=== PATIENT | male | born 1945 | race Hispanic/Latino ===

== ENCOUNTER 2018-11-21 15:34 | Inpatient (IN) | payer MEDICARE, OTHER ==
[~2018-11-21] VITALS: Ht 170.2 cm; Wt 69.9 kg
[~2018-11-21 15:34] MED LIST: FERS325 PO; TIOT4MIS3 IH
[2018-11-21] MEDS ORDERED: ONDANSETRON HCL 4 MG/2 ML VIAL ONE (16:39)
[2018-11-21] MEDS ORDERED: HYDROMORPHONE 1 MG/1 ML AMP ONE (16:40)
[2018-11-21 16:53] LABS: BASOPHILS % (AUTO) 0.4 % (0.0-5.0); EOSINOPHILS % (AUTO) 0.4 % (0.0-8.0); HEMATOCRIT 38.5 % (42-54); LYMPHOCYTES % (AUTO) 12.7 % (21.0-51.0); MEAN CORPUSCULAR HEMOGLOBIN 30.9 pg (27.0-33.0); MEAN CORPUSCULAR VOLUME 93.9 fL (79-99); NEUTROPHILS % (AUTO) 82.5 % (40.0-77.0); PLATELET COUNT (AUTO) 182 K/uL (130-400); RED CELL DISTRIBUTION WIDTH 14.3 % (11.0-15.5); WHITE BLOOD COUNT (AUTO) 14.5 K/uL (4.8-10.8)
[2018-11-21] MEDS ORDERED: IPRATROPIUM/ALBUTEROL SULFATE 3 ML SOLUTION IH ONE (16:57)
[2018-11-21] MEDS ORDERED: ACETAMINOPHEN 325 MG TAB PO PRN (17:00)
[2018-11-21] MEDS ORDERED: ONDANSETRON HCL 4 MG/2 ML VIAL IV PRN (17:00)
[2018-11-21 17:05] LABS: INR 1.02 (0.85-1.15); PARTIAL THROMBOPLASTIN TIME 29.5 SEC (26.3-35.5); PROTHROMBIN TIME 10.7 SEC (9.6-11.6)
[2018-11-21 17:12] LABS: CREATININE 0.8 mg/dL (0.5-1.5); POTASSIUM 3.5 mmol/L (3.5-5.1)
[2018-11-21 17:17] LABS: ALBUMIN 3.7 g/dL (3.5-5.0); BILIRUBIN,TOTAL 0.4 mg/dL (0.2-1.0); TOTAL PROTEIN, SERUM 7.1 g/dL (6.0-8.3)
[2018-11-21 17:57] VITALS: BP 150/106
--- NOTE | 2018-11-21 18:00 | NUR ---
dr. betancourt made aware of consult stated to keep pt npo after midnight
--- NOTE | 2018-11-21 18:00 | NUR ---
family made aware to bring pt's medications from home
--- NOTE | 2018-11-21 18:27 | NUR ---
LOPPER paged, no answer
--- NOTE | 2018-11-21 18:32 | NUR ---
maritza alonso was paged
[2018-11-21] MEDS ORDERED: CLONIDINE HCL 0.1 MG TABLET ONE (18:37)
[2018-11-21] MEDS ORDERED: CLONIDINE HCL 0.1 MG TABLET PO PRN (18:45)
[2018-11-21] MEDS: IPRATROPIUM/ALBUTEROL SULFATE 3 ML SOLUTION IH SCH ×2 (19:35→22:39)
[2018-11-21] MEDS: SODIUM CHLORIDE 0.9% 1000ML 1,000 ML IV SCH (19:44)
[2018-11-21] MEDS: FAMOTIDINE 20MG TAB 20 MG TAB PO SCH (19:44)
[2018-11-21 20:00] VITALS: BP 115/62
[2018-11-21 23:59] VITALS: BP 140/57
[2018-11-22] MEDS: IPRATROPIUM/ALBUTEROL SULFATE 3 ML SOLUTION IH SCH ×6 (02:16→21:35)
[2018-11-22 04:00] VITALS: BP 146/58
[2018-11-22] MEDS: MORPHINE SULFATE 4 MG/1ML SYG IV PRN ×4 (04:07→20:55)
[2018-11-22 05:27] LABS: HEMATOCRIT 30.7 % (42-54); MEAN CORPUSCULAR HEMOGLOBIN 32.3 pg (27.0-33.0); MEAN CORPUSCULAR HGB CONC 34.3 g/dL (32.0-36.0); MEAN CORPUSCULAR VOLUME 94.2 fL (79-99); PLATELET COUNT (AUTO) 173 K/uL (130-400); RED BLOOD CELL COUNT(AUTO) 3.26 MIL/uL (4.50-6.20); RED CELL DISTRIBUTION WIDTH 14.5 % (11.0-15.5); WHITE BLOOD COUNT (AUTO) 13.2 K/uL (4.8-10.8)
[2018-11-22 05:42] LABS: ALBUMIN 3.2 g/dL (3.5-5.0); BILIRUBIN,TOTAL 0.3 mg/dL (0.2-1.0); CREATININE 0.8 mg/dL (0.5-1.5); POTASSIUM 3.3 mmol/L (3.5-5.1); TOTAL PROTEIN, SERUM 6.2 g/dL (6.0-8.3)
[2018-11-22] MEDS ORDERED: BUDESONIDE 0.5 MG/2 ML INH IH ONE (07:20)
[2018-11-22] MEDS: BUDESONIDE 0.5 MG/2 ML INH IH SCH ×2 (07:22→18:44)
[2018-11-22 07:49] VITALS: BP 154/67
[2018-11-22] MEDS: SODIUM CHLORIDE 0.9% 1000ML 1,000 ML IV SCH ×2 (08:12→20:00)
[2018-11-22] MEDS: FAMOTIDINE 20MG TAB 20 MG TAB PO SCH ×2 (08:12→19:58)
[2018-11-22] MEDS: ENOXAPARIN SODIUM 30 MG/0.3 ML SQ SCH (09:22)
[2018-11-22] MEDS ORDERED: SODI100037 PO (09:26)
[2018-11-22] MEDS ORDERED: POTASSIUM CHLORIDE 20 MEQ ERTAB PO SCH (11:00)
[2018-11-22 11:27] VITALS: BP 131/50
--- NOTE | 2018-11-22 13:48 | NUR ---
DCP CM met with pt discussed dc plans. Pt is independent prior to admission, lives at home with spouse and son. Pt has a cane and shower chair. Denies any other equipments/services. Pt feels safe to go back home, spouse and son able to assists w/transportation and any needs a snecessary. Offered short term rehab for PT after surgery, pt and family agreeable, would like to decide after surgery and once MD makes recommendations. DC plan to home vs Rehab. CM to cont to follow up. Addendum: 11/22/18 at 1350 by OVIDIO ZELAYA LVN CM Amended: Links added.
[2018-11-22 15:26] LABS: APPEARANCE,URINE CLOUDY (CLEAR); BILIRUBIN,URINE NEGATIVE (NEGATIVE); COLOR,URINE YELLOW (YELLOW); GLUCOSE, URINE (UA) NEGATIVE (NEGATIVE); KETONES,URINE NEGATIVE (NEGATIVE); LEUKOCYTE ESTERASE ,URINE MODERATE (NEGATIVE); NITRATE,URINE NEGATIVE (NEGATIVE); OCCULT BLOOD,URINE TRACE-INTACT (NEGATIVE); PROTEIN,URINE NEGATIVE (NEGATIVE); UROBILINOGEN,URINE 0.2 mg/dL (0.2-1.0)
[2018-11-22 15:45] LABS: BACTERIA,URINE Few /HPF (None Seen)
[2018-11-22 15:46] LABS: SQUAMOUS EPITHELIAL CELL,UR Rare /HPF (0-2)
[2018-11-22 16:00] VITALS: BP 179/87
[2018-11-22] MEDS: LEVOFLOXACIN 500 MG/D5W 100 ML 100 ML IV SCH (16:35)
[2018-11-22] MEDS ORDERED: HYDRALAZINE HCL 20 MG/ML VIAL IV PRN (17:45)
[2018-11-22] MEDS: METHYLPREDNISOLONE SOD SUCC 125MG/2ML VIAL IVP SCH ×2 (18:03→23:17)
[2018-11-22] MEDS: NICOTINE 14 MG/ 24 HR PATCH TD SCH (18:29)
[2018-11-22 19:15] VITALS: BP 148/82
[2018-11-22] MEDS: OSELTAMIVIR PHOSPHATE 75 MG CAP PO SCH (19:58)
[2018-11-22 23:59] VITALS: BP 115/90
[2018-11-23] MEDS: IPRATROPIUM/ALBUTEROL SULFATE 3 ML SOLUTION IH SCH ×6 (01:08→21:41)
[2018-11-23 03:20] VITALS: BP 161/91
[2018-11-23 03:40] LABS: ABG BASE EXCESS -1.6 mmol/L (-2.0-3.0); ABG HCO3 21.2 mmol/L (21.0-28.0); ABG OXYGEN SATURATION 94.1 % (95.0-99.0); ABG PCO2 31 mmHg (35-48)
[2018-11-23 04:12] LABS: BASOPHILS % (AUTO) 0.1 % (0.0-5.0); HEMATOCRIT 28.1 % (42-54); LYMPHOCYTES % (AUTO) 9.3 % (21.0-51.0); MONOCYTES % (AUTO) 2.1 % (3.0-13.0); NEUTROPHILS % (AUTO) 88.5 % (40.0-77.0); PLATELET COUNT (AUTO) 129 K/uL (130-400); RED BLOOD CELL COUNT(AUTO) 2.99 MIL/uL (4.50-6.20); RED CELL DISTRIBUTION WIDTH 14.7 % (11.0-15.5); WHITE BLOOD COUNT (AUTO) 9.6 K/uL (4.8-10.8)
[2018-11-23 04:18] LABS: INR 1.02 (0.85-1.15); PROTHROMBIN TIME 10.7 SEC (9.6-11.6)
[2018-11-23 04:27] LABS: CREATININE 0.6 mg/dL (0.5-1.5); MAGNESIUM 1.5 mg/dL (1.80-2.40); PHOSPHORUS 2.4 mg/dL (2.5-4.9)
[2018-11-23] MEDS: METHYLPREDNISOLONE SOD SUCC 125MG/2ML VIAL IVP SCH ×4 (05:20→23:10)
[2018-11-23] MEDS ORDERED: CEFAZOLIN SODIUM 1 GM VIAL IVP PRN (06:00)
[2018-11-23] MEDS: BUDESONIDE 0.5 MG/2 ML INH IH SCH ×2 (06:09→18:06)
[2018-11-23] MEDS ORDERED: MAGNESIUM 2GM PREMIX 50ML 50 ML IV SCH (07:45)
[2018-11-23 07:46] VITALS: BP 193/86
[2018-11-23] MEDS: OSELTAMIVIR PHOSPHATE 75 MG CAP PO SCH ×2 (09:10→19:58)
[2018-11-23] MEDS: METOPROLOL TARTRATE 25 MG TAB PO SCH ×2 (09:10→19:59)
[2018-11-23] MEDS: FAMOTIDINE 20MG TAB 20 MG TAB PO SCH ×2 (09:10→19:58)
[2018-11-23] MEDS: ENOXAPARIN SODIUM 30 MG/0.3 ML SQ SCH (09:10)
[2018-11-23] MEDS: NICOTINE 14 MG/ 24 HR PATCH TD SCH (09:13)
[2018-11-23] MEDS: SODIUM CHLORIDE 0.9% 1000ML 1,000 ML IV SCH ×2 (09:14→23:10)
[2018-11-23 11:17] VITALS: BP 158/79
[2018-11-23] MEDS: MORPHINE SULFATE 4 MG/1ML SYG IV PRN ×2 (12:52→17:48)
[2018-11-23 16:21] VITALS: BP 158/77
[2018-11-23] MEDS: LEVOFLOXACIN 500 MG/D5W 100 ML 100 ML IV SCH (16:51)
[2018-11-23 19:25] VITALS: BP 127/77
[2018-11-23 23:10] VITALS: BP 160/86
[2018-11-24] VITALS (13 sets, daily range): BP systolic 112–190; BP diastolic 59–105
[2018-11-24] MEDS: IPRATROPIUM/ALBUTEROL SULFATE 3 ML SOLUTION IH SCH ×6 (01:44→22:11)
[2018-11-24] MEDS: MORPHINE SULFATE 4 MG/1ML SYG IV PRN ×2 (01:51→09:04)
[2018-11-24 04:36] LABS: HEMATOCRIT 26.3 % (42-54); MEAN CORPUSCULAR HGB CONC 34.3 g/dL (32.0-36.0); MEAN CORPUSCULAR VOLUME 93.2 fL (79-99); MONOCYTES % (AUTO) 5.7 % (3.0-13.0); NEUTROPHILS % (AUTO) 85.3 % (40.0-77.0); PLATELET COUNT (AUTO) 137 K/uL (130-400); RED BLOOD CELL COUNT(AUTO) 2.82 MIL/uL (4.50-6.20); RED CELL DISTRIBUTION WIDTH 14.3 % (11.0-15.5); WHITE BLOOD COUNT (AUTO) 14.2 K/uL (4.8-10.8)
[2018-11-24 04:48] LABS: CREATININE 0.5 mg/dL (0.5-1.5); POTASSIUM 3.3 mmol/L (3.5-5.1)
[2018-11-24] MEDS: METHYLPREDNISOLONE SOD SUCC 125MG/2ML VIAL IVP SCH ×4 (05:42→22:53)
[2018-11-24] MEDS ORDERED: POTASSIUM CHLORIDE 10MEQ/100ML 100 ML IV PRN (06:15)
[2018-11-24] MEDS ORDERED: POTASSIUM CHLORIDE 10% ELIXIR 20 MEQ/15 ML UDCUP PO PRN (06:15)
[2018-11-24] MEDS ORDERED: LIDOCAINE HCL-MPF 1% 2ML VIAL IVP PRN (06:15)
[2018-11-24] MEDS: BUDESONIDE 0.5 MG/2 ML INH IH SCH ×2 (06:19→19:29)
[2018-11-24] MEDS: ENOXAPARIN SODIUM 30 MG/0.3 ML SQ SCH (07:40)
[2018-11-24] MEDS: FAMOTIDINE 20MG TAB 20 MG TAB PO SCH ×2 (07:40→20:32)
[2018-11-24] MEDS: FERROUS SULFATE 325 MG TABLET.DR PO SCH (07:40)
[2018-11-24] MEDS: NICOTINE 14 MG/ 24 HR PATCH TD SCH (07:41)
[2018-11-24] MEDS: METOPROLOL TARTRATE 25 MG TAB PO SCH ×2 (08:56→20:32)
--- NOTE | 2018-11-24 11:49 | NUR ---
CM Note: dcp to [facility] post surgery, pending MD order. CM met with pt, pending left hip surgery w/Dr Hawthorne today. Discussed possible short term placement for rehab post surgery, pt agreeable, AUGUST signed for [facility] pending MD order. Primary nurse updated w/poc, aware pt pending MD order for placement post surgery and PT. CM to cont to follow up.
[2018-11-24] MEDS: SODIUM CHLORIDE 0.9% 1000ML 1,000 ML IV SCH ×2 (12:11→19:20)
--- NOTE | 2018-11-24 13:45 | NUR ---
CM Note: [facility] pending acceptance CM faxed clinicals, order, and pasrr. Spoke to Mira w/[facility], received request, made aware pt pending left hip ORIF w/Dr Hawthorne today, will send PT notes and updated clinicals once available post surgery. Stated will come eval pt after surgery done. Pt pending acceptance. Primary nurse aware. CM to cont to follow up.
[2018-11-24] MEDS: LEVOFLOXACIN 500 MG/D5W 100 ML 100 ML IV SCH (16:16)
[2018-11-24] MEDS ORDERED: LIDOCAINE PF 2% 5ML ABBOJECT ONE (16:59)
[2018-11-24] MEDS ORDERED: ROCURONIUM 10MG/1ML SYR 10 MG/ML ML ONE (17:00)
[2018-11-24] MEDS ORDERED: MIDAZOLAM HCL 1 MG/ML 2ML VIAL ONE (17:00)
[2018-11-24] MEDS ORDERED: PROPOFOL 10 MG/ML 20ML VIAL IV ONE (17:00)
[2018-11-24] MEDS ORDERED: GLYCOPYRROLATE 1 MG/5 ML SYRINGE ONE (17:00)
[2018-11-24] MEDS ORDERED: ONDANSETRON HCL 4 MG/2 ML VIAL ONE (17:00)
[2018-11-24] MEDS ORDERED: NEOSTIGMINE 5MG/5ML SYR IV ONE (17:00)
[2018-11-24] MEDS ORDERED: DEXAMETHASONE SOD PHOSPHATE 10MG/ML 1ML VIAL ONE (17:00)
[2018-11-24] MEDS ORDERED: FENTANYL CITRATE PF 50 MCG/1 ML 2ML VIAL ONE (17:01)
[2018-11-24] MEDS ORDERED: ROPIVACAINE 0.5% 5MG/ML 30ML IJ ONE (18:38)
[2018-11-24] MEDS ORDERED: LABETALOL HCL 5 MG/ML 20ML VIAL IV ONE (18:40)
--- NOTE | 2018-11-24 19:30 | NUR ---
RECEIVED BY ICU BED TO 206. PLACED ON BEDSIDE MONITOR, NIBP, PULSE OXIMETER. IVF INFUSING FROM OR. CALL LIGHT GIVEN AND EXPLAINED PLACED BY HIM. INSTRUCTED TO CALL FOR WANTS OR NEEDS. NOTED TO BED WHEEZING. RT CALLED FOR BREATHING TX. O2 IN PLACE ALREADY 40% MASK.
[2018-11-24] MEDS ORDERED: ACETAMINOPHEN-CODEINE 300/30MG TAB PO PRN (19:45)
--- NOTE | 2018-11-24 19:45 | NUR ---
RT HERE AND BREATHING TX GIVEN. NON PRODUCTIVE COUGH NOTED.
--- NOTE | 2018-11-24 20:00 | NUR ---
VISITOR SON AT BEDSIDE AND QUESTIONS ANSWERED.
[2018-11-24] MEDS: CEFAZOLIN SODIUM 1 GM VIAL IVP SCH (21:04)
[2018-11-25] VITALS (14 sets, daily range): BP systolic 124–169; BP diastolic 59–90
[2018-11-25] MEDS: SODIUM CHLORIDE 0.9% 1000ML 1,000 ML IV SCH (00:34)
[2018-11-25] MEDS: IPRATROPIUM/ALBUTEROL SULFATE 3 ML SOLUTION IH SCH ×6 (01:54→21:50)
[2018-11-25] MEDS: MORPHINE SULFATE 4 MG/1ML SYG IV PRN ×3 (02:22→18:43)
[2018-11-25 03:43] LABS: BASOPHILS % (AUTO) 0.1 % (0.0-5.0); CREATININE 0.6 mg/dL (0.5-1.5); HEMATOCRIT 24.9 % (42-54); LYMPHOCYTES % (AUTO) 7.5 % (21.0-51.0); MEAN CORPUSCULAR HGB CONC 34.2 g/dL (32.0-36.0); MEAN CORPUSCULAR VOLUME 93.4 fL (79-99); MONOCYTES % (AUTO) 5.5 % (3.0-13.0); NEUTROPHILS % (AUTO) 86.9 % (40.0-77.0); PLATELET COUNT (AUTO) 147 K/uL (130-400); POTASSIUM 3.5 mmol/L (3.5-5.1); RED BLOOD CELL COUNT(AUTO) 2.67 MIL/uL (4.50-6.20); RED CELL DISTRIBUTION WIDTH 14.5 % (11.0-15.5); WHITE BLOOD COUNT (AUTO) 13.2 K/uL (4.8-10.8)
[2018-11-25] MEDS: METHYLPREDNISOLONE SOD SUCC 125MG/2ML VIAL IVP SCH ×4 (04:59→23:13)
[2018-11-25] MEDS: CEFAZOLIN SODIUM 1 GM VIAL IVP SCH (04:59)
[2018-11-25] MEDS: BUDESONIDE 0.5 MG/2 ML INH IH SCH ×2 (07:11→19:27)
[2018-11-25] MEDS: FAMOTIDINE 20MG TAB 20 MG TAB PO SCH ×2 (08:34→20:14)
[2018-11-25] MEDS: FERROUS SULFATE 325 MG TABLET.DR PO SCH (08:34)
[2018-11-25] MEDS: METOPROLOL TARTRATE 25 MG TAB PO SCH ×2 (08:34→20:14)
[2018-11-25] MEDS: ASPIRIN 81MG TAB.CHEW PO SCH (09:10)
[2018-11-25] MEDS: NICOTINE 14 MG/ 24 HR PATCH TD SCH (09:10)
[2018-11-25] MEDS: ENOXAPARIN SODIUM 30 MG/0.3 ML SQ SCH (09:10)
--- NOTE | 2018-11-25 10:00 | NUR ---
Patient being transferred to [facility], report called to Mayda SANTIAGO. All questions answered. Patient will be moved via bed with all belongings. Patient is in stable condition. Family updated at bedside.
[2018-11-25] MEDS: POTASSIUM CHLORIDE 20 MEQ ERTAB PO PRN ×2 (11:16→18:41)
[2018-11-25] MEDS: LEVOFLOXACIN 500 MG/D5W 100 ML 100 ML IV SCH (16:52)
[2018-11-25] MEDS ORDERED: ATORVASTATIN CALCIUM 20 MG TABLET PO SCH (21:00)
[2018-11-25] MEDS ORDERED: LACTULOSE 20 GM/30 ML UDCUP ONE (23:04)
[2018-11-25] MEDS ORDERED: LACTULOSE 20 GM/30 ML UDCUP PO PRN (23:15)
[2018-11-26] MEDS: IPRATROPIUM/ALBUTEROL SULFATE 3 ML SOLUTION IH SCH ×4 (02:31→13:46)
[2018-11-26 03:24] VITALS: BP 151/71
[2018-11-26] MEDS: METHYLPREDNISOLONE SOD SUCC 125MG/2ML VIAL IVP SCH ×3 (05:18→17:45)
[2018-11-26] MEDS: BUDESONIDE 0.5 MG/2 ML INH IH SCH (06:03)
[2018-11-26 06:14] LABS: HEMATOCRIT 25.4 % (42-54); LYMPHOCYTES % (AUTO) 13.8 % (21.0-51.0); MEAN CORPUSCULAR HEMOGLOBIN 31.7 pg (27.0-33.0); MEAN CORPUSCULAR HGB CONC 33.7 g/dL (32.0-36.0); MEAN CORPUSCULAR VOLUME 94.1 fL (79-99); MONOCYTES % (AUTO) 8.5 % (3.0-13.0); NEUTROPHILS % (AUTO) 77.7 % (40.0-77.0); NUCLEATED RED BLOOD CELLS 0.1 % (0.0-0.19); PLATELET COUNT (AUTO) 157 K/uL (130-400); RED CELL DISTRIBUTION WIDTH 14.9 % (11.0-15.5); WHITE BLOOD COUNT (AUTO) 12.7 K/uL (4.8-10.8)
[2018-11-26 06:30] LABS: CREATININE 0.6 mg/dL (0.5-1.5); POTASSIUM 3.8 mmol/L (3.5-5.1)
[2018-11-26 07:43] VITALS: BP 184/83
[2018-11-26] MEDS: ASPIRIN 81MG TAB.CHEW PO SCH (08:47)
[2018-11-26] MEDS: FERROUS SULFATE 325 MG TABLET.DR PO SCH (08:47)
[2018-11-26] MEDS: FAMOTIDINE 20MG TAB 20 MG TAB PO SCH (08:47)
[2018-11-26] MEDS: METOPROLOL TARTRATE 25 MG TAB PO SCH (08:47)
[2018-11-26] MEDS: ENOXAPARIN SODIUM 30 MG/0.3 ML SQ SCH (08:48)
[2018-11-26] MEDS: NICOTINE 14 MG/ 24 HR PATCH TD SCH (08:51)
[2018-11-26 10:40] VITALS: BP 118/61
--- NOTE | 2018-11-26 11:16 | NUR ---
[facility] F/U cm spoke to Lynn with [facility]. Asked Cm to refax referral. CM notified Lynn that pt is pending d/c today.
--- NOTE | 2018-11-26 12:33 | NUR ---
[facility] ACCEPTED cm spoke to Lynn with [facility]. States pt has been accepted and aware that pt is discharging today. Nursing updated with above. PAULINA notified Lynn that pt will be needing van transport with oxygen. States she can arrange. Addendum: 11/26/18 at 1234 by EMILIANO GALDAMEZ Amended: Links added.
--- NOTE | 2018-11-26 12:38 | NUR ---
ROOM AIR OXYGEN SATURATION PATIENT HAS BEEN ON ROOM AIR FOR APPROXIMATELY 45 MIN. PULSE OXIMETRY 02 SATURATION READING 92%-95% ON ROOM AIR. PATIENT REPORTS NO DIFFICULTY BREATHING.
--- NOTE | 2018-11-26 13:28 | NUR ---
CM NOTE cm spoke to Lynn with [facility]. Notified that pt will be needing IV Levaquin 10 days and has PIV only. States they can still accept pt. Cm notified nursing they can call report.
[2018-11-26] MEDS: LEVOFLOXACIN 500 MG/D5W 100 ML 100 ML IV SCH (15:49)
[2018-11-26 16:37] VITALS: BP 160/64
--- NOTE | 2018-11-26 17:30 | NUR ---
DISCHARGE NURSE REPORT GIVEN TO ARA PARRA OF [facility]. INFORMED ARA PARRA THAT FOLLOW-UP APPOINTMENTS PENDING TO BE SCHEDULED WITH PRIMARY MD, DR. TOURE, CARDIOLOGY, AND PULMONOLOGY. ORIGINAL RX PLACED IN PATIENT CHART COPY. DISCHARGE TEACHING PROVIDED TO PATIENT AND HIS SON, ELENA GALDAMEZ JR. PATIENT DISCHARGED WITH 20G IV TO RIGHT AC. IV IS ASYMPTOMATIC, PATENT AND INTACT. PATIENT GIVEN DOSE FOR LEVAQUIN PRIOR TO DISCHARGE. LEFT HIP INCISION GAUZE DRESSING DRY AND INTACT. PATIENT IS IN NO PAIN OR APPARENT DISTRESS. AWAITING [facility] TRANSPORT STAFF TO [employer] PATIENT.
== END 2018-11-26 18:11 | DRG 481 ==
LOC: EDH 15:34 → 4AH 16:48 → 2BH 11-24 19:16 → 4AH 11-25 10:39
PROVIDERS: ADMIT Hospitalist; ATTEND Hospitalist
PROC: 0QS706Z Reposition Left Upper Femur with Intramedullary Internal Fixation Device, Open Approach (ICD-10-PCS; principal; 2018-11-24 17:15)
DX: S72.142A Displaced intertrochanteric fracture of left femur, initial encounter for closed fracture (principal); J44.1 Chronic obstructive pulmonary disease with (acute) exacerbation; J96.10 Chronic respiratory failure, unspecified whether with hypoxia or hypercapnia; N39.0 Urinary tract infection, site not specified; I31.3 Pericardial effusion (noninflammatory); E87.1 Hypo-osmolality and hyponatremia; F17.200 Nicotine dependence, unspecified, uncomplicated; I10 Essential (primary) hypertension; D64.9 Anemia, unspecified; E78.5 Hyperlipidemia, unspecified; B95.2 Enterococcus as the cause of diseases classified elsewhere; I25.10 Atherosclerotic heart disease of native coronary artery without angina pectoris; I35.0 Nonrheumatic aortic (valve) stenosis; I65.23 Occlusion and stenosis of bilateral carotid arteries; I73.9 Peripheral vascular disease, unspecified; I95.1 Orthostatic hypotension; M81.0 Age-related osteoporosis without current pathological fracture; W01.0XXA Fall on same level from slipping, tripping and stumbling without subsequent striking against object, initial encounter; Y93.89 Activity, other specified; Y92.098 Other place in other non-institutional residence as the place of occurrence of the external cause; Y99.8 Other external cause status; Z87.442 Personal history of urinary calculi; Z91.14 Patient's other noncompliance with medication regimen; Z91.81 History of falling; Z95.5 Presence of coronary angioplasty implant and graft; Z83.6 Family history of other diseases of the respiratory system
CPT/HCPCS: 36415; 36600; 70450; 71045; 72125; 73502; 73552; 76000; 80048; 80053; 81001; 82550; 82803; 83735; 84100; 84484; 85025; 85027; 85610; 85730; 86850; 86900; 86901; 86922; 87077; 87088; 87186; 93005; 93306; 93880; 94640; 94664; A4218; G0378; J0360; J0690; J1100; J1170; J1650; J1956; J2001; J2250; J2270; J2405; J2704; J2710; J2795; J2930; J3010; J3475; J3490; J7030

== ENCOUNTER 2020-11-24 07:40 | Day surgery (SDC) | payer MEDICARE ==
[~2020-11-24 07:40] MED LIST changes: +SODI100037 PO; -TIOT4MIS3 IH
[2020-11-24] MEDS ORDERED: SODIUM CHLORIDE 0.9% 1000ML 1,000 ML IV ONE (08:31)
[2020-11-24 08:53] LABS: INR 1.08 (0.85-1.15); PROTHROMBIN TIME 11.5 SEC (9.6-11.6)
[2020-11-24 08:54] LABS: PARTIAL THROMBOPLASTIN TIME 33.9 SEC (26.3-35.5)
[2020-11-24] MEDS ORDERED: FENTANYL CITRATE PF 50 MCG/1 ML 2ML VIAL ONE (10:30)
[2020-11-24 11:35] VITALS: BP 189/91
[2020-11-24] MEDS ORDERED: IPRATROPIUM/ALBUTEROL SULFATE 3 ML SOLUTION IH SCH (11:37)
[2020-11-24 11:50] VITALS: BP 179/88
[2020-11-24 12:05] VITALS: BP 169/87
[2020-11-24 12:20] VITALS: BP 158/61
[2020-11-24 12:50] VITALS: BP 115/58
[2020-11-24 13:15] VITALS: BP 126/66
== END 2020-11-24 13:30 ==
LOC: DAH 07:40
PROVIDERS: ATTEND Internal Medicine Hematology & Oncology
DX: R91.8 Other nonspecific abnormal finding of lung field (principal); K21.9 Gastro-esophageal reflux disease without esophagitis; E78.5 Hyperlipidemia, unspecified; C79.71 Secondary malignant neoplasm of right adrenal gland; J44.9 Chronic obstructive pulmonary disease, unspecified; Z79.01 Long term (current) use of anticoagulants; Z79.899 Other long term (current) drug therapy
CPT/HCPCS: 32405; 36415; 77012; 85610; 85730; 94640; A4215; A4216; A4221; A4222; A4223 ×3; A4606; A4663; J3010; J7030 ×2

== ENCOUNTER 2020-12-30 10:52 | Emergency (ER) | payer MEDICARE ==
[2020-12-30 11:42] LABS: BASOPHILS % (AUTO) 0.1 % (0.0-5.0); EOSINOPHILS % (AUTO) 1.1 % (0.0-8.0); HEMATOCRIT 35.1 % (42-54); LYMPHOCYTES % (AUTO) 22.2 % (21.0-51.0); MEAN CORPUSCULAR HEMOGLOBIN 30.4 pg (27.0-33.0); MEAN CORPUSCULAR HGB CONC 33.9 g/dL (32.0-36.0); MEAN CORPUSCULAR VOLUME 89.8 fL (79-99); NEUTROPHILS % (AUTO) 67.5 % (40.0-77.0); PLATELET COUNT (AUTO) 126 K/uL (130-400); RED BLOOD CELL COUNT(AUTO) 3.91 MIL/uL (4.50-6.20); RED CELL DISTRIBUTION WIDTH 13.1 % (11.0-15.5); WHITE BLOOD COUNT (AUTO) 7.2 K/uL (4.8-10.8)
[2020-12-30 11:52] LABS: CREATININE 0.9 mg/dL (0.5-1.5); POTASSIUM 3.2 mmol/L (3.5-5.1)
[2020-12-30 11:56] LABS: ALBUMIN 3.3 g/dL (3.5-5.0); BILIRUBIN,TOTAL 0.7 mg/dL (0.2-1.0); TOTAL PROTEIN, SERUM 7.2 g/dL (6.0-8.3)
[2020-12-30] MEDS ORDERED: ONDANSETRON 4MG TABLET ONE (13:14)
[2020-12-30] MEDS ORDERED: MORPHINE 4 MG SYG ONE (13:15)
[2021-05-30] MEDS ORDERED: VIT-32 PO (16:22)
[2021-05-30] MEDS ORDERED: BENZ-70 PO (16:22)
[2021-05-30] MEDS ORDERED: CILO100T PO (16:22)
[2021-05-30] MEDS ORDERED: DIPH1TAB PO (16:22)
[2021-05-30] MEDS ORDERED: SODI1TAB4 PO (16:22)
[2021-05-30] MEDS ORDERED: ATOR20TA65 PO (16:22)
[2021-05-30] MEDS ORDERED: IBUP-2071 PO (16:22)
[2021-05-30] MEDS ORDERED: OMEP40CA21 PO (16:22)
[2021-05-30] MEDS ORDERED: CLON0.1T PO (16:22)
[2021-05-30] MEDS ORDERED: FOLI1 PO (16:22)
[2021-06-04] MEDS ORDERED: METH4TAB3 PO (13:30)
[2021-06-04] MEDS ORDERED: BUDE180H IH (13:30)
[2021-06-04] MEDS ORDERED: MAGN400T53 PO (13:30)
[2021-06-04] MEDS ORDERED: CEFU500T67 PO (13:30)
[2021-06-04] MEDS ORDERED: ALBU8.5H8 IH (13:30)
== END 2020-12-30 15:14 | disposition home or self-care (01) ==
LOC: EDH 10:52
DX: R07.89 Other chest pain (principal); R91.8 Other nonspecific abnormal finding of lung field; J44.9 Chronic obstructive pulmonary disease, unspecified; Z87.891 Personal history of nicotine dependence
CPT/HCPCS: 36415; 71045; 80053; 83690; 85025; 93005; 96372; 99285; J2270; Q0162

== ENCOUNTER 2021-09-19 11:45 | Inpatient (IN) | payer MEDICARE ==
[~2021-09-19] VITALS: Ht 170.2 cm; Wt 61.1 kg
[~2021-09-19 11:45] MED LIST changes: +ALBU8.5H8 IH; +ATOR20TA65 PO; +BENZ-70 PO; +BUDE180H IH; +CEFU500T67 PO; +CILO100T PO; +CLON0.1T PO; +DIPH1TAB PO; +FOLI1 PO; +IBUP-2071 PO; +MAGN400T53 PO; +METH4TAB3 PO; +OMEP40CA21 PO; +SODI1TAB4 PO; +VIT-32 PO
[2021-09-19 12:28] LABS: BASOPHILS % (AUTO) 0.1 % (0.0-5.0); HEMATOCRIT 33.8 % (42-54); LYMPHOCYTES % (AUTO) 4.2 % (21.0-51.0); MEAN CORPUSCULAR HEMOGLOBIN 31.5 pg (27.0-33.0); MEAN CORPUSCULAR VOLUME 92.6 fL (79-99); NEUTROPHILS % (AUTO) 91.2 % (40.0-77.0); PLATELET COUNT (AUTO) 102 K/uL (130-400); RED BLOOD CELL COUNT(AUTO) 3.65 MIL/uL (4.50-6.20); RED CELL DISTRIBUTION WIDTH 16.4 % (11.0-15.5); WHITE BLOOD COUNT (AUTO) 11.4 K/uL (4.8-10.8)
[2021-09-19 12:44] LABS: ALBUMIN 2.6 g/dL (3.5-5.0); BILIRUBIN,TOTAL 0.5 mg/dL (0.2-1.0); CREATININE 1.2 mg/dL (0.5-1.5); TOTAL PROTEIN, SERUM 5.8 g/dL (6.0-8.3)
[2021-09-19 12:50] LABS: B-TYPE NATRIURETIC PEPTIDE 321 pg/mL (0-100)
[2021-09-19 12:55] LABS: INR 1.13 (0.85-1.15); PROTHROMBIN TIME 12.2 SEC (9.6-11.6)
[2021-09-19] MEDS ORDERED: POTASSIUM CHLORIDE 20MEQ/100ML 100 ML IV ONE (13:35)
[2021-09-19] MEDS ORDERED: POTASSIUM BICARB/CIT AC 25 MEQ TABLET.EFF ONE (13:35)
[2021-09-19] MEDS ORDERED: LIDOCAINE HCL-MPF 1% 2ML VIAL ONE (13:36)
[2021-09-19] MEDS ORDERED: POTASSIUM BICARB/CIT AC 25 MEQ TABLET.EFF PO ONE (14:30)
[2021-09-19] MEDS ORDERED: POTASSIUM CHLORIDE 20MEQ/100ML 100 ML IV SCH (14:30)
[2021-09-19] MEDS ORDERED: KCL 20 MEQ ERTAB PO PRN (15:30)
[2021-09-19] MEDS ORDERED: 0.9% NACL 250ML IVPB SCH (15:30)
[2021-09-19] MEDS ORDERED: DOXYCYCLINE 100MG IVPB (VIAL) IVPB SCH (15:30)
[2021-09-19 16:03] LABS: POTASSIUM 1.9 mmol/L (3.5-5.1)
[2021-09-19 16:15] LABS: MAGNESIUM 1.2 mg/dL (1.80-2.40)
[2021-09-19] MEDS: CEFEPIME HCL 1 GM VIAL IVP SCH ×2 (16:15→23:22)
[2021-09-19] MEDS: LACTATED RINGERS 1000ML 1,000 ML IV SCH (16:15)
[2021-09-19] MEDS: DOXYCYCLINE 100MG+NS 250ML IV SCH (16:15)
[2021-09-19] MEDS: 0.9% NACL 250ML IVPB SCH (16:15)
[2021-09-19] MEDS ORDERED: AREDS 2 PO (16:26)
[2021-09-19] MEDS ORDERED: KCL 20 MEQ ERTAB PO ONE (16:30)
[2021-09-19 21:00] VITALS: BP 182/64
[2021-09-19 21:04] LABS: CREATININE 0.9 mg/dL (0.5-1.5)
[2021-09-19 21:23] LABS: POTASSIUM 2.2 mmol/L (3.5-5.1)
[2021-09-19] MEDS: MAGNESIUM 2GM PREMIX 50ML 50 ML IV PRN (21:40)
[2021-09-19] MEDS: POTASSIUM CHLORIDE 10% ELIXIR 20 MEQ/15 ML UDCUP PO PRN ×4 (21:41→23:55)
[2021-09-19 22:00] VITALS: BP 153/67
[2021-09-19 23:00] VITALS: BP 154/76
[2021-09-19] MEDS ORDERED: LORA2ORA PO (23:13)
[2021-09-19] MEDS: POTASSIUM CHLORIDE 20MEQ/100ML 100 ML IV PRN (23:15)
[2021-09-19] MEDS: LIDOCAINE HCL-MPF 1% 2ML VIAL IV PRN (23:16)
[2021-09-20] VITALS (24 sets, daily range): BP systolic 139–198; BP diastolic 55–100
[2021-09-20 01:26] LABS: CREATININE 0.8 mg/dL (0.5-1.5)
[2021-09-20 01:30] LABS: POTASSIUM 2.6 mmol/L (3.5-5.1)
[2021-09-20] MEDS: POTASSIUM CHLORIDE 10% ELIXIR 20 MEQ/15 ML UDCUP PO PRN ×7 (01:43→22:42)
[2021-09-20] MEDS: LIDOCAINE HCL-MPF 1% 2ML VIAL IV PRN ×3 (01:49→19:31)
[2021-09-20] MEDS: POTASSIUM CHLORIDE 20MEQ/100ML 100 ML IV PRN ×4 (01:49→19:31)
[2021-09-20] MEDS: DOXYCYCLINE 100MG+NS 250ML IV SCH ×2 (03:38→17:42)
[2021-09-20] MEDS: 0.9% NACL 250ML IVPB SCH ×2 (03:39→17:42)
[2021-09-20 05:30] LABS: CREATININE 0.9 mg/dL (0.5-1.5); MAGNESIUM 1.9 mg/dL (1.80-2.40); POTASSIUM 3.9 mmol/L (3.5-5.1)
[2021-09-20] MEDS: MAGNESIUM 2GM PREMIX 50ML 50 ML IV PRN ×2 (05:47→20:57)
[2021-09-20] MEDS ORDERED: HYDRALAZINE 20MG/ML VIAL IM PRN (06:30)
[2021-09-20] MEDS ORDERED: HYDRALAZINE 20MG/ML VIAL ONE (06:31)
[2021-09-20] MEDS ORDERED: 0.9%NACL 100ML 100 ML ONE (08:27)
[2021-09-20] MEDS: CEFEPIME HCL 1 GM VIAL IVP SCH ×3 (08:28→22:41)
[2021-09-20 09:10] LABS: CREATININE 0.8 mg/dL (0.5-1.5)
[2021-09-20 09:28] LABS: POTASSIUM 2.9 mmol/L (3.5-5.1)
[2021-09-20] MEDS: ASPIRIN 81MG CHEW TAB PO SCH (10:20)
[2021-09-20] MEDS ORDERED: AMLODIPINE 5 MG TAB PO SCH (11:00)
[2021-09-20] MEDS: IPRATROPIUM/ALBUTEROL SULFATE 3 ML SOLUTION IH SCH ×3 (12:20→23:17)
[2021-09-20] MEDS: LACTATED RINGERS 1000ML 1,000 ML IV SCH (12:25)
[2021-09-20] MEDS ORDERED: SOLU-MEDROL 40MG VIAL IVP SCH (12:30)
[2021-09-20 14:55] LABS: APPEARANCE,URINE Clear (CLEAR); BILIRUBIN,URINE Negative (NEGATIVE); COLOR,URINE Yellow (YELLOW); GLUCOSE, URINE (UA) Negative (NEGATIVE); KETONES,URINE Negative (NEGATIVE); LEUKOCYTE ESTERASE ,URINE Negative (NEGATIVE); NITRATE,URINE Negative (NEGATIVE); OCCULT BLOOD,URINE Negative (NEGATIVE); PH,URINE >=9.0 (5.0-8.0); PROTEIN,URINE Negative (NEGATIVE); UROBILINOGEN,URINE 0.2 mg/dL (0.2-1.0)
[2021-09-20 14:59] LABS: CREATININE,URINE RANDOM 10 mg/dL (30-135); POTASSIUM,URINE RANDOM 63 mmol/L (25-125); SODIUM,URINE RANDOM 124 mmol/l (40-220)
[2021-09-20 15:40] LABS: BACTERIA,URINE Rare /HPF (None Seen)
[2021-09-20 15:41] LABS: MUCUS,URINE Rare LPF (None Seen); SQUAMOUS EPITHELIAL CELL,UR Rare /HPF (0-2)
[2021-09-20 18:32] LABS: CREATININE 0.7 mg/dL (0.5-1.5); MAGNESIUM 1.6 mg/dL (1.80-2.40)
[2021-09-20 18:33] LABS: POTASSIUM 2.6 mmol/L (3.5-5.1)
[2021-09-20] MEDS ORDERED: HYDRALAZINE 20MG/ML VIAL IV PRN (20:00)
[2021-09-20] MEDS: SOLU-MEDROL 40MG VIAL IVP SCH (20:56)
[2021-09-21] VITALS (12 sets, daily range): BP systolic 98–190; BP diastolic 40–100
[2021-09-21] MEDS: POTASSIUM CHLORIDE 20MEQ/100ML 100 ML IV PRN (00:33)
[2021-09-21] MEDS: LIDOCAINE HCL-MPF 1% 2ML VIAL IV PRN (00:34)
[2021-09-21 03:25] LABS: HEMATOCRIT 32.6 % (42-54); MEAN CORPUSCULAR HGB CONC 34.4 g/dL (32.0-36.0); MEAN CORPUSCULAR VOLUME 93.1 fL (79-99); RED BLOOD CELL COUNT(AUTO) 3.5 MIL/uL (4.50-6.20); RED CELL DISTRIBUTION WIDTH 17.5 % (11.0-15.5); WHITE BLOOD COUNT (AUTO) 9.7 K/uL (4.8-10.8)
[2021-09-21 03:40] LABS: ALBUMIN 2.5 g/dL (3.5-5.0); BILIRUBIN,TOTAL 0.9 mg/dL (0.2-1.0); CREATININE 0.8 mg/dL (0.5-1.5); MAGNESIUM 2.1 mg/dL (1.80-2.40); PHOSPHORUS 1.9 mg/dL (2.5-4.9); TOTAL PROTEIN, SERUM 5.7 g/dL (6.0-8.3); URIC ACID 2.8 mg/dL (2.6-7.2)
[2021-09-21] MEDS: DOXYCYCLINE 100MG+NS 250ML IV SCH (05:11)
[2021-09-21] MEDS: 0.9% NACL 250ML IVPB SCH (05:12)
[2021-09-21] MEDS: POTASSIUM CHLORIDE 10% ELIXIR 20 MEQ/15 ML UDCUP PO PRN ×6 (05:13→17:00)
[2021-09-21] MEDS: LACTATED RINGERS 1000ML 1,000 ML IV SCH (06:38)
[2021-09-21] MEDS: IPRATROPIUM/ALBUTEROL SULFATE 3 ML SOLUTION IH SCH ×3 (07:14→19:25)
[2021-09-21] MEDS: SOLU-MEDROL 40MG VIAL IVP SCH ×2 (08:01→20:45)
[2021-09-21] MEDS: AMLODIPINE 5 MG TAB PO SCH (08:01)
[2021-09-21] MEDS: ASPIRIN 81MG CHEW TAB PO SCH (08:01)
[2021-09-21] MEDS ORDERED: 0.9% NACL 250ML 250 ML ONE ×2 (08:13→20:28)
[2021-09-21] MEDS: DOXYCYCLINE 100MG+NS 250ML 250 ML IV SCH ×2 (08:20→20:46)
[2021-09-21] MEDS ORDERED: 0.9% NACL 250ML IVPB SCH (09:00)
[2021-09-21] MEDS ORDERED: DOXYCYCLINE 100MG+NS 250ML IV SCH (09:00)
[2021-09-21] MEDS ORDERED: HYDROMORPHONE 0.5 MG SYG (0.5MG/0.5ML) IVP PRN ×2 (10:30)
[2021-09-21] MEDS: CEFEPIME HCL 1 GM VIAL IVP SCH ×2 (15:23→20:45)
[2021-09-22 00:43] VITALS: BP 142/50
[2021-09-22] MEDS: IPRATROPIUM/ALBUTEROL SULFATE 3 ML SOLUTION IH SCH ×3 (00:43→11:09)
[2021-09-22 04:00] VITALS: BP 177/78
[2021-09-22] MEDS: CEFEPIME HCL 1 GM VIAL IVP SCH ×2 (05:01→13:29)
[2021-09-22] MEDS: POTASSIUM CHLORIDE 10% ELIXIR 20 MEQ/15 ML UDCUP PO PRN ×2 (05:51→08:13)
[2021-09-22 08:00] VITALS: BP 144/59
[2021-09-22] MEDS: AMLODIPINE 5 MG TAB PO SCH (08:13)
[2021-09-22] MEDS: ASPIRIN 81MG CHEW TAB PO SCH (08:13)
[2021-09-22] MEDS: DOXYCYCLINE 100MG+NS 250ML 250 ML IV SCH (08:14)
[2021-09-22] MEDS: SOLU-MEDROL 40MG VIAL IVP SCH (08:14)
[2021-09-22] MEDS ORDERED: 0.9% NACL 250ML 250 ML ONE (10:31)
[2021-09-22] MEDS ORDERED: POTASSIUM CHLORIDE 10% ELIXIR 20 MEQ/15 ML UDCUP PO ONE (11:00)
[2021-09-22 11:23] VITALS: BP 181/70
[2021-09-22] MEDS ORDERED: MORPHINE PO (11:23)
[2021-09-22 11:48] VITALS: BP 151/77
== END 2021-09-22 17:55 | disposition hospice, inpatient (51) | DRG 193 ==
LOC: EDH 11:45 → EDHIP 14:26 → 2DH 19:54 → 3CH 09-21 12:13
PROVIDERS: ADMIT Hospitalist; ATTEND Hospitalist
DX: J18.9 Pneumonia, unspecified organism (principal); E43 Unspecified severe protein-calorie malnutrition; G92.8 Other toxic encephalopathy; J96.01 Acute respiratory failure with hypoxia; C34.90 Malignant neoplasm of unspecified part of unspecified bronchus or lung; D84.9 Immunodeficiency, unspecified; E87.0 Hyperosmolality and hypernatremia; E87.6 Hypokalemia; F03.90 Unspecified dementia, unspecified severity, without behavioral disturbance, psychotic disturbance, mood disturbance, and anxiety; E83.42 Hypomagnesemia; Z66 Do not resuscitate; D64.9 Anemia, unspecified; I10 Essential (primary) hypertension; E11.9 Type 2 diabetes mellitus without complications; E78.5 Hyperlipidemia, unspecified; K21.9 Gastro-esophageal reflux disease without esophagitis; J43.9 Emphysema, unspecified; R53.81 Other malaise; E87.8 Other disorders of electrolyte and fluid balance, not elsewhere classified; Z68.21 Body mass index [BMI] 21.0-21.9, adult; R77.8 Other specified abnormalities of plasma proteins; N19 Unspecified kidney failure; Z51.5 Encounter for palliative care; Z87.891 Personal history of nicotine dependence; Z92.21 Personal history of antineoplastic chemotherapy; Z92.3 Personal history of irradiation; Z87.01 Personal history of pneumonia (recurrent); Z83.6 Family history of other diseases of the respiratory system
CPT/HCPCS: 36415; 71045; 80048; 80053; 81001; 82550; 82570; 83735; 83874; 83880; 83935; 84100; 84132; 84133; 84300; 84484; 84550; 85025; 85027; 85610; 92526; 92610; 93005; 94640; G0378; J0360; J0692; J1170; J2920; J3475; J3480; J3490; J7050; J7120